=== PATIENT | male | born 1945 | race Caucasian/White ===

== ENCOUNTER 2016-07-13 13:44 | Emergency (ER) | payer OTHER ==
--- NOTE | 2016-07-13 13:59 | EDPHY ---
H & P Time Seen by Provider: 07/13/16 13:57 HPI/ROS: CHIEF COMPLAINT: Abdominal pain HISTORY OF PRESENT ILLNESS: This patient is a 71 year old male with a history of diverticulitis who presents to the Emergency Department complaining of acute abdominal pain beginning yesterday evening and remaining constant over time. He describes the pain as localized to his left lower quadrant with associated diarrhea. He has been taking clear liquids since yesterday which he has been able to tolerate well. He states that this is an identical presentation to prior episodes of diverticulitis. He denies nausea, vomiting, hematuria, dysuria , fever, or additional complaints. REVIEW OF SYSTEMS: Constitutional: No fever, no chills Eyes: No visual changes ENT: No sore throat Respiratory: No cough, no shortness of breath Cardiac: No chest pain Gastrointestinal: As in HPI Genitourinary: No hematuria, no dysuria Musculoskeletal: No leg pain or swelling Skin: No rash Neurological: No headache, no numbness, no weakness Psychiatric: No depression Past Medical/Surgical History: Diverticulitis. Social History: , at bedside. Smoking Status: Never smoked Physical Exam: General Appearance: Alert, nontoxic Eyes: Pupils equal and round, no conjunctival pallor or injection ENT, Mouth: Mucous membranes moist Neck: Normal inspection Respiratory: normal respiratory rate, CTA Cardiovascular: Regular rate and rhythm Gastrointestinal: Abdomen is soft, LLQ tenderness to palpation Neurological: A&O, nonfocal, normal gait Skin: Warm and dry, no rash Extremities: normal inspection Psychiatric: Mood and affect normal Constitutional: Initial Vital Signs Temperature (C) 36.3 C 07/13/16 13:51 Heart Rate 53 L 07/13/16 13:51 Respiratory Rate 18 07/13/16 13:51 Blood Pressure 136/84 H 07/13/16 13:51 O2 Sat (%) 97 07/13/16 13:51 O2 Delivery Mode Room Air Allergies/Adverse Reactions: cefazolin [From Anc] Allergy (Verified 07/13/16 13:49) Sulfa (Sulfonamide Antibiotics) Allergy (Verified 07/13/16 13:49) tramadol Allergy (Verified 07/13/16 13:49) remicor? Allergy (Uncoded 11/18/13 09:30) Home Medications: Medication Instructions Recorded Benazepril HCl [Lotensin] 40 mg PO 11/13/12 Hydrocodone/APAP 5/325 [[place] 1 - 2 tab PO Q4-6PRN PRN #11 tab 11/18/13 5/325] Ciprofloxacin [Cipro] 500 mg PO BID #20 tab 07/13/16 Hydrocodone/APAP 5/325 [[place] 1 - 2 tab PO Q4H PRN #15 tab 07/13/16 5/325] metroNIDAZOLE [Flagyl 500 mg (*)] 500 mg PO BID #20 tab 07/13/16 Medical Decision Making ED Course/Re-evaluation: This 71-year-old male presents complaining of acute LLQ abdominal pain with associated diarrhea beginning yesterday evening. He describes this episode as identical to prior episodes of diverticulitis. On exam, he has LLQ tenderness also suspicious for diverticulitis. Given this, will plan to discharge home on Flagyl and Cipro to treat. I have discussed strict return precautions with him as well as follow-up with his PCP; he expresses agreement to this treatment plan and will be discharged home in good condition. Differential Diagnosis: The differential diagnosis for the patient's abdominal pain included but was not limited to diverticulitis, appendicitis, cholecystitis, hernias, testicular torsion, gastritis, and urinary tract infection. - Data Points Medications Given: Discontinued Medications Ciprofloxacin (Cipro) 500 mg PO EDNOW ONE PRN Reason: Protocol Stop: 07/13/16 14:07 Last Admin: 07/13/16 14:28 Dose: 500 mg Metronidazole (Flagyl) 500 mg PO EDNOW ONE PRN Reason: Protocol Stop: 07/13/16 14:07 Last Admin: 07/13/16 14:28 Dose: 500 mg Departure - Departure Disposition: Home, Routine, Self-Care Clinical Impression: Diverticulitis Qualifiers: Diverticulitis site: unspecified part of intestinal tract Diverticulitis bleeding: without bleeding Diverticulitis complication: without perforation or abscess Qualified Code(s): K57.92 - Diverticulitis of intestine, part unspecified, without perforation or abscess without bleeding Condition: Good Instructions: Hydrocodone/Acetaminophen (By mouth), Diverticulitis (ED) Additional Instructions: 1. Complete the full course of both Cipro and Flagyl to treat your diverticulitis. 2. Take hydrocodone as prescribed as needed for severe pain. 3. Continue to eat a clear liquid diet. You can eat a bland foods diet when you start to feel better. 4. Follow-up with your primary care provider for reevaluation if your symptoms have not improved in 3-5 days. 5. Return to the Emergency Department if you experience worsening pain, any urinary symptoms, vomiting, fever, or other serious concerns. Referrals: Juan Luis Rios MD [Primary Care Provider] - As per Instructions Prescriptions: Ciprofloxacin [Cipro] 500 mg PO BID #20 tab Hydrocodone/APAP 5/325 [[place] 5/325] 1 - 2 tab PO Q4H PRN #15 tab PRN Reason: Pain, Moderate metroNIDAZOLE [Flagyl 500 mg (*)] 500 mg PO BID #20 tab Report Scribed for: Cristina Chu Report Scribed by: Sophia Busby Date of Report: 07/13/16 Time of Report: 13:58 Physician Review and Approval Statement: 07/13/16 13:59 Portions of this note were transcribed by a medical dosimetrist. I personally performed a history, physical exam, medical decision making, and confirmed accuracy of information the transcribed note.
[2016-07-13] MEDS ORDERED: CIPROFLOXACIN 500 MG TAB PO ONE (14:06)
[2016-07-13] MEDS ORDERED: metroNIDAZOLE 500 MG TAB PO ONE (14:06)
[2016-07-13 14:33] VITALS: BP 130/78; PULSE 70; RESP 14; TEMP 98.4; O2SAT 94
== END 2016-07-13 14:30 | disposition home or self-care (01) ==
DX: K57.92 Diverticulitis of intestine, part unspecified, without perforation or abscess without bleeding (principal)

== ENCOUNTER → 2016-07-14 | Outpatient (CLI) | payer OTHER | LOC: BHFA 10:00 | PROVIDERS: ATTEND Internal Medicine Cardiovascular Disease | DX: R94.31 Abnormal electrocardiogram [ECG] [EKG] (principal); R07.9 Chest pain, unspecified ==

== ENCOUNTER → 2016-08-03 | Outpatient (CLI) | payer OTHER | LOC: BHFA 09:00 | PROVIDERS: ATTEND Internal Medicine Interventional Cardiology | DX: R94.31 Abnormal electrocardiogram [ECG] [EKG] (principal); R07.9 Chest pain, unspecified | CPT/HCPCS: 78452; 93017; A9500 ==

== ENCOUNTER → 2017-03-03 | Outpatient (CLI) | payer OTHER | LOC: GIMAGING 15:56 | PROVIDERS: ATTEND Registered Nurse | DX: J42 Unspecified chronic bronchitis (principal) | CPT/HCPCS: 71046-PO ==